=== PATIENT | female | born 1965 | race Caucasian/White ===

== ENCOUNTER 2023-06-29 10:12 | Outpatient (AMB) | payer OTHER, SELFPAY ==
--- NOTE | 2023-06-29 10:34 | AM.OFFWIN_ITS ---
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 PFSH Social History Patient Tobacco Use Status: Never used Tobacco Review of Systems ENT Details: Ear blockage Physical Exam Vital Signs: Last Vital Signs Temp 97.9 F 06/29/23 10:35 Pulse 59 06/29/23 10:35 BP 96/60 06/29/23 10:35 Pulse Ox 99 06/29/23 10:35 Oxygen Delivery Method Room Air 06/29/23 10:35 BMI result Body Mass Index 20.1 Const General: cooperative, healthy appearing, no acute distress and alert Orientation/consciousness: patient oriented x3 Limitations: no limitations HEENT Other: Cerumen impacted the ears bilaterally. Head: Yes normal to inspection Ears: hearing grossly normal bilaterally General nose exam: Normal external nose present Resp Effort & Inspection: normal respiratory effort and able to speak in complete sentences Cardio Rate: regular rate Skin General skin exam: no rashes or lesions noted Neuro General: patient oriented x3 Extrem General: Yes normal to inspection Assessment & Plan Assessment & Plan (1) Cerumen impaction: Code(s): H61.20 - Impacted cerumen, unspecified ear Qualifiers: Laterality: bilateral Qualified Code(s): H61.23 - Impacted cerumen, bilateral Plan: Cerumen impaction bilaterally unable to visualize TMs. Ears were flushed bilaterally re-evaluation still shows significant wax large mild removed from the left ear. Mom TMs intact minor bleeding in the canal. 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 Coding Level of Care Code New Pt Level 3 (50730) Diagnoses Bilateral impacted cerumen H61.23 Laterality: bilateral
[2023-06-29 10:35] VITALS: BP 96/60; PULSE 59; TEMP 36.6; O2SAT 99; BMI 20.1
== END 2023-06-29 11:22 | disposition home or self-care (01) ==
PROVIDERS: Visit Provider Physician Assistant
DX: H61.23 Impacted cerumen, bilateral (principal)
CPT/HCPCS: 99051; 99203

== ENCOUNTER 2023-10-29 16:50 | Emergency (ER) | payer OTHER, SELFPAY ==
--- NOTE | ~2023-10-29 | CT_ITS ---
EXAMINATION: CT KNEE WITHOUT CONTRAST, LEFT CLINICAL INFORMATION: Tibial plateau fracture. Patellar fracture. COMPARISON: Plain film exam of left knee today. TECHNIQUE: Axial images obtained through the left knee. Coronal and sagittal reformatted images are performed at CT scanner This CT examination was performed using dose optimization techniques as appropriate, variously including the following: *Automated exposure control *Adjustment of mA and/or kV according to patient size (this includes techniques or standardized protocols for targeted exams where dose is matched to indication/reason for exam; i.e. extremities or head) *Use of iterative reconstruction technique DLP: 273 mGy-cm FINDINGS: There is a minimally displaced small fracture through the tip of the distal pole of the patella. The patellar tendon remains intact. There is edema around the fracture extending into the prepatellar soft tissues. There is a minimally displaced intra-articular fracture of the proximal tibia. Fracture extends through the medial tibial spine into the metadiaphysis of the proximal tibia. Fracture primarily extends into the anterior, medial and posterior cortex of the tibia. No significant depression of the articular surface of the tibia. No fracture of the femur or proximal fibula. No dislocation. Lipohemarthrosis present. CT/CT knee LT wo IV con IMPRESSION: 1. Minimally displaced fracture of the distal pole of the patella. 2. Minimally displaced intra-articular fracture of the proximal tibia. 3. Lipohemarthrosis.
--- NOTE | ~2023-10-29 | XR_ITS ---
EXAMINATION: XR KNEE, LEFT XR TIBIA/FIBULA, LEFT CLINICAL INFORMATION: Fall. Left knee and marshall pain. COMPARISON: None available. TECHNIQUE: AP and lateral views of the left knee and left tibia/fibula. FINDINGS: Left Knee/Tibia and Fibula: Linear lucency within the medial tibial spine contacting the articular surface with more faint linear lucency through the medial aspect of the tibial plateau which contacts the medial cortical surface. Findings likely represent a nondisplaced tibial plateau fracture. This is better visualized than the anterior view of the tibia and fibula. No distal tibial or fibular fracture. Nondisplaced fracture through the inferior pole of the patella with a fracture gap measuring up to 0.1 cm. Normal patellofemoral alignment. No concerning lytic or blastic osseous lesion. No joint space or marginal osteophytes. No osseous erosion. No abnormal soft tissue calcification. XR/XR knee LT 2V IMPRESSION: 1. Nondisplaced fracture through the inferior pole of the patella. 2. Nondisplaced medial tibial plateau fracture with extension to the articular surface of the medial tibial spine as well as extension to the medial tibial cortex.
--- NOTE | ~2023-10-29 | XR_ITS ---
EXAMINATION: XR KNEE, LEFT XR TIBIA/FIBULA, LEFT CLINICAL INFORMATION: Fall. Left knee and marshall pain. COMPARISON: None available. TECHNIQUE: AP and lateral views of the left knee and left tibia/fibula. FINDINGS: Left Knee/Tibia and Fibula: Linear lucency within the medial tibial spine contacting the articular surface with more faint linear lucency through the medial aspect of the tibial plateau which contacts the medial cortical surface. Findings likely represent a nondisplaced tibial plateau fracture. This is better visualized than the anterior view of the tibia and fibula. No distal tibial or fibular fracture. Nondisplaced fracture through the inferior pole of the patella with a fracture gap measuring up to 0.1 cm. Normal patellofemoral alignment. No concerning lytic or blastic osseous lesion. No joint space or marginal osteophytes. No osseous erosion. No abnormal soft tissue calcification. XR/XR tibia fibula LT 2V IMPRESSION: 1. Nondisplaced fracture through the inferior pole of the patella. 2. Nondisplaced medial tibial plateau fracture with extension to the articular surface of the medial tibial spine as well as extension to the medial tibial cortex.
[2023-10-29 17:35] VITALS: BP 121/58; PULSE 74; RESP 16; TEMP 36.8; O2SAT 99; BMI 18.7
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
[2023-10-29 20:12] VITALS: BP 120/62; PULSE 82; O2SAT 99
[2023-10-29] MEDS: Ibuprofen 600 MG TABLET PO (22:39)
[2023-10-29 23:09] VITALS: BP 128/69; PULSE 82; O2SAT 99
[2023-10-30 00:48] VITALS: BP 128/69; PULSE 82; RESP 18; TEMP -17.7; TEMP 0; O2SAT 99
== END 2023-10-30 00:35 | disposition home or self-care (01) ==
PROVIDERS: Emergency Provider Emergency Medicine; PCP General Practice
DX: S82.142A Displaced bicondylar fracture of left tibia, initial encounter for closed fracture (principal); S82.002A Unspecified fracture of left patella, initial encounter for closed fracture; V18.0XXA Pedal cycle driver injured in noncollision transport accident in nontraffic accident, initial encounter; Y93.9 Activity, unspecified; Y92.9 Unspecified place or not applicable; Y99.9 Unspecified external cause status; M25.562 Pain in left knee
CPT/HCPCS: 29505; 73560; 73590; 73700; 99283; 99284

== ENCOUNTER 2023-10-31 14:55 | Outpatient (AMB) | payer OTHER, SELFPAY ==
[2023-10-31 15:10] VITALS: BMI 18.7
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
== END 2023-10-31 16:14 | disposition home or self-care (01) ==
PROVIDERS: PCP General Practice; Visit Provider Physician Assistant
DX: S82.142A Displaced bicondylar fracture of left tibia, initial encounter for closed fracture (principal); S82.002A Unspecified fracture of left patella, initial encounter for closed fracture
CPT/HCPCS: 99203

== ENCOUNTER → 2023-10-31 14:55 | Outpatient (BNVA) | payer OTHER, SELFPAY | PROVIDERS: PCP General Practice; Visit Provider Physician Assistant | DX: S82.142A Displaced bicondylar fracture of left tibia, initial encounter for closed fracture (principal); S82.002A Unspecified fracture of left patella, initial encounter for closed fracture | CPT/HCPCS: 99202 ==

== ENCOUNTER 2023-11-28 10:33 | Outpatient (REF) | payer OTHER, SELFPAY ==
--- NOTE | ~2023-11-28 | XR_ITS ---
EXAMINATION: XR KNEE, LEFT CLINICAL INFORMATION: Pain unspecified knee. COMPARISON: CT knee and x-ray knee, left knee of October 29, 2023. TECHNIQUE: AP standing view of bilateral knees. Lateral and sunrise views of the left knee. FINDINGS: LEFT KNEE: Redemonstration of a minimally displaced fracture through the inferior/distal pole of the patella. The previously identified minimally displaced intra-articular fracture of the proximal tibia extending to the medial spine into the metadiaphysis of the proximal tibia as well as into the anterior, medial posterior cortex of the tibia, was better characterized on prior CT scan and appears less conspicuous, suggesting some interval bridging callus formation. Moderate suprapatellar effusion. RIGHT KNEE: AP standing view of the right knee demonstrates [id number] narrowing of the lateral compartment and mild narrowing of the medial compartment. XR/XR knee LT 3V IMPRESSION: 1. Redemonstration of a minimally displaced fracture through the inferior/distal pole of the patella. 2. The previously identified minimally displaced intra-articular fracture of the proximal tibia extending to the medial spine into the metadiaphysis of the proximal tibia as well as into the anterior, medial posterior cortex of the tibia, was better characterized on prior CT scan and appears less conspicuous, suggesting some interval bridging callus formation. 3. Moderate suprapatellar effusion.
== END 2023-11-28 10:34 | disposition home or self-care (01) ==
LOC: HO.HOSX 10:33
PROVIDERS: Visit Provider Physician Assistant
DX: S82.142D Displaced bicondylar fracture of left tibia, subsequent encounter for closed fracture with routine healing (principal); S82.002D Unspecified fracture of left patella, subsequent encounter for closed fracture with routine healing
CPT/HCPCS: 73562; 99212

== ENCOUNTER 2023-11-28 10:52 | Outpatient (AMB) | payer OTHER, SELFPAY ==
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
[2023-11-28 11:28] VITALS: BMI 18.7
== END 2023-11-28 12:32 | disposition home or self-care (01) ==
PROVIDERS: PCP General Practice; Visit Provider Physician Assistant
DX: S82.142A Displaced bicondylar fracture of left tibia, initial encounter for closed fracture (principal); S82.002A Unspecified fracture of left patella, initial encounter for closed fracture
CPT/HCPCS: 99213

== ENCOUNTER 2023-12-25 08:00 | Outpatient (RCR) | payer OTHER, SELFPAY ==
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
--- NOTE | 2024-01-28 15:24 | MHC.PT.DC ---
[facility] [place] Office [place] Office [place] Office [address] [place] Ayon [address] [phone] F: [phone] F: [phone] F: [phone] F: [phone] Physical Therapy Discharge Report Diagnosis: This is a 58 yo female presenting to skilled PT with a script for displaced bicondylar fx L tibia/patella. Date of Surgery: Date of Evaluation: 12/04/23 Date of Discharge: 01/28/24 Treatments to Date: 2 Cancellations to Date: 0 No Shows to Date: 0 Discharge Status: Achieved Goals Improved Function Independent with HEP Patient Elected to Stop Discharge Summary: Patient was last seen on 12/24: Patient comes in with much improved ROM, strength, gait and swelling. Very compliant with HEP. I updated her HEP, went over stairs with her and educated her on the PT POC moving forward. She will call me after she sees ortho again in a few weeks to make a PT POC. Patient saw ortho and was cleared to weight bear. She has a sufficient HEP to continue on her own due to high co-pay. DC at this time. Electronically signed by: Becky Torres, PT Please sign and return to therapist. Thank you for your referral.
== END 2024-01-28 15:24 | disposition home or self-care (01) ==
LOC: HO.PTCHIC 08:00
PROVIDERS: PCP General Practice; Visit Provider Physician Assistant
DX: S82.002D Unspecified fracture of left patella, subsequent encounter for closed fracture with routine healing (principal); S82.142D Displaced bicondylar fracture of left tibia, subsequent encounter for closed fracture with routine healing
CPT/HCPCS: 97110; 97140; 97162; 97530

== ENCOUNTER 2024-01-06 09:00 | Outpatient (REF) | payer OTHER, SELFPAY | END 2024-01-06 09:01 | disposition home or self-care (01) | LOC: HO.HOSX 09:00 | PROVIDERS: Visit Provider Physician Assistant | DX: Z13.89 Encounter for screening for other disorder (principal) ==

== ENCOUNTER 2024-01-10 07:18 | Outpatient (REF) | payer OTHER, SELFPAY ==
--- NOTE | ~2024-01-10 | XR_ITS ---
EXAMINATION: XR KNEE, LEFT CLINICAL INFORMATION: Pain. COMPARISON: November 28, 2023 and October 29, 2023 radiographs, October 29, 2023 CT scan. TECHNIQUE: Two views of the left knee. FINDINGS: Redemonstration of a minimally displaced fracture through the inferior/distal pole of the patella with stable alignment and some interval bridging callus formation. The previously identified minimally displaced intra-articular fracture of the proximal tibia extending to the medial spine into the metadiaphysis of the proximal tibia as well as into the anterior, medial posterior cortex of the tibia, appears less conspicuous with evidence of bridging callus formation. Small suprapatellar effusion. XR/XR knee LT 2V IMPRESSION: Healing fractures of the patella and proximal tibia.
== END 2024-01-10 07:19 | disposition home or self-care (01) ==
LOC: HO.HOSX 07:18
PROVIDERS: Visit Provider Physician Assistant
DX: M25.562 Pain in left knee (principal); S82.142D Displaced bicondylar fracture of left tibia, subsequent encounter for closed fracture with routine healing; X58.XXXD Exposure to other specified factors, subsequent encounter
CPT/HCPCS: 73560; 99212

== ENCOUNTER 2024-01-10 09:43 | Outpatient (AMB) | payer OTHER, SELFPAY ==
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
[2024-01-10 09:51] VITALS: BMI 18.7
== END 2024-01-10 10:08 | disposition home or self-care (01) ==
PROVIDERS: PCP General Practice; Visit Provider Physician Assistant
DX: S82.142A Displaced bicondylar fracture of left tibia, initial encounter for closed fracture (principal); S82.002A Unspecified fracture of left patella, initial encounter for closed fracture
CPT/HCPCS: 99213

== ENCOUNTER 2025-01-06 08:03 | Outpatient (REF) | payer OTHER, SELFPAY ==
--- NOTE | ~2025-01-06 | MM_ITS ---
EXAMINATION: MM SCREENING DIGITAL BREAST TOMOSYNTHESIS, BILATERAL CLINICAL INFORMATION: Screening. Asymptomatic. COMPARISON: Mammography: Baseline. TECHNIQUE: Digital breast mammography with tomosynthesis is performed in both the craniocaudal and mediolateral oblique views along with computer-aided detection (CAD). FINDINGS: The breasts are heterogeneously dense, which may obscure small masses (ACR BI-RADS breast composition Category c). Left: Left marker clip. Asymmetry medial breast far posterior depth on CC view. No suspicious calcifications or other abnormal findings. Right: Asymmetry lateral breast posterior depth on CC view. No suspicious calcifications or other abnormal findings. MM/MM tomosynthesis screening BI IMPRESSION: Additional imaging is recommended ASSESSMENT: BI-RADS BI-RADS 0 - Incomplete: Needs additional Imaging. RECOMMENDATION: 1. Additional views of the bilateral breasts. 2. Targeted ultrasound if warranted after review of the additional views. 3. Radiology department staff will contact the patient for additional imaging. Additional Imaging required This examination should not preclude the clinical evaluation of a suspicious palpable abnormality. This patient's information was entered into a reminder system with a target due date for their next mammogram. Electronically signed by: Shyanne Hanna DO 01/11/2025 12:23 PM EDT
--- OUTSIDE RECORDS SUMMARY | 2025-01-06 08:15 | XMS_ITS | Clinical Summary ---
Author Organization [employer] Address [address] [facility] 7[address] [place] [address] Care Team Providers Care Oncology Rn Name Role Phone Susana Jay MD Primary Care Provider [phone] Allergies Active Allergy Reactions Criticality Noted Date Comments Sulfa Antibiotics Hives 09/26/2009 Medications azithromycin (Zithromax Z-Mychal) 250 MG tablet Take 2 tablets once on day 1, then 1 tablet 1x/day for 4 days. 6 tablet 12/23/2024 Active Active Problems Problem Noted Date Diagnosed Date Encounter for screening mamm ogram for malignant neoplasm of breast 10/01/2024 Lump of breast, right 11/08/2016 Overview (09/29/2024): 09/2016 Evaluated at [facility] by Dr Lo. Likely fibroadenoma. Pt declining bx due to cost. F/u breast mammo and us in [address] Lo. Raynaud disease 10/07/2013 Rosacea 10/07/2013 Deviated nasal septum 10/08/2012 Overview (09/29/2024): Deviated nasal septum Obstructive sleep apnea syndrome 10/08/2012 Overview (09/29/2024): KELLIE - Obstructive sleep apnea Breast calcification seen on mammogram 0 Overview (09/29/2024): Needs repeat mammo with mag views in 6 months( 09/2010) Last mammo 04/12/2010 at [facility] Foot cramps 10/20/2009 Encounters Date Type Department Care Team Description 12/23/2024 9:40 AM EDT [facility] [address] [address] Man Sarabia MD Acute cough (Primary Dx); Viral URI 12/23/2024 Travel from Last 3 Months Immunizations Immunization Administration Dates Next Due Tdap 09/24/2012 Social History Tobacco Use Types Packs/Day Years Used Date Smoking Tobacco: Never Smokeless Tobacco: Never Tobacco Cessation:Counseling Given: Not Answered Alcohol Use Standard Drinks/Week Comments Never 0 (1 standard drink = 0.6 oz pur e alcohol) Alcohol Answer Date Recorded How often do you have a drink containing alcohol ? 2 10/01/2024 How many drinks containing a lcohol do you have on a typical day when you are drinking? 0 10/01/2024 How often do you have six or more drinks on one occasion? 0 10/01/2024 Depression Answer Date Recorded Patient Health Questionnaire-9 Score 0 09/29/2024 Patient Health Questionnaire-9 Score 0 09/29/2024 Last PHQ-9: Questionnaire Data Not on file 0 09/29/2024 Housing Stability Answer Date Recorded What is your housing situation today? I have [place] 09/22/[address] you li ve. Do you have problems with any of the following? None of the above 09/22/2024 Food Insecurity Answer Date Recorded Within the past 12 months, y ou worried that your food would run out before you got money to buy more: Never True 09/22/2024 Within the past 12 months,th e food you bought just didn't last and you didn't have enough money to get more: Never True 10/2024 Transportation Answer Date Recorded In the past 12 months, has l ack of transportation kept you from medical appts, meetings, work or from getting things needed for daily living? No 09/22/2024 Intimate Partner Violence Answer Date R ecorded Within the last year, have y ou been afraid of your partner or ex-partner? 2 10/01/2024 Within the last year, have y ou been humiliated or emotionally abused in other ways by your partner or ex-partner? 2 Within the last year, have y ou been kicked, hit, slapped, or otherwise physically hurt by your partner or ex-partner? 2 10/01/2024 Within the last year, have y ou been raped or forced to have any kind of sexual activity by your partner or ex-partner? 2 10/01/2024 Utilities Answer Date Recorded In the past 12 months, has t he electric, gas, oil or water company threatened to shut off services in your home? No 09/22/2024 Depression Answer Date Recorded Patient Health Questionnaire-2 Score 0 09/29/2024 Internet Access Answer Date Recorded Internet Access Q1 Yes 09/22/2024 Internet Access Q2 Not on file 09/22/2024 Comments No Sex and Gender Information Value Date Recorded Sex Assigned at Female 03/16/2024 10:55 AM EDT Legal Sex Female 10:54 AM EDT Gender Identity Female 09/29/2024 10:27 AM EDT Sexual Orientation Straight 03/16/2024 10 :55 AM EDT Travel History Travel Start Travel End [place] 12/19/2024 12/22/2024 Last Filed Vital Signs Vital Sign Reading Time Taken Comments Blood Pressure 132/81 12/23/2024 9:49 AM EDT Pulse 70 12/23/2024 9:49 AM EDT Temperature 37.3 C (99.1 F) 12/23/2024 9:49 AM EDT Respiratory Rate 17 12/23/2024 9:49 AM EDT Oxygen Saturation 98% 12/23/2024 9:49 AM EDT Inhaled Oxygen Concentration - - Weight 61 kg (134 lb 6.4 oz) 12/23/2024 9:49 AM EDT Height 177.8 cm (5' 10 ) 09/29/2024 9:41 AM EDT Body Mass Index 19.28 09/29/2024 9:41 AM EDT Plan of Treatment Health Maintenance Due Date Last Done Comments CT Colonography 1967 Colonoscopy 1967 Colorectal Cancer Screening 1967 FIT DNA/Cologuard 1967 FIT 1967 FOBT 1967 HIV Screening 1967 Sigmoidoscopy 1967 Disability Screening 1967 Hepatitis C Screening 1985 Hepatitis B Vaccines (1 of 3 - 19+ 3-dose series) 1986 Pap Smear 1988 Cervical Cancer Screening 1997 HPV/Cotest 1997 Pneumococcal Vaccine: 50+ Years (1 of 1 - PCV) 2017 Zoster Vaccines (1 of 2) 2017 Mammogram 09/27/2018 09/27/2016, 03/03/2017, 12/02/2013, Additional history exists DTaP/Tdap/Td Vaccines (2 - Td or Tdap) 09/24/2022 09/24/2012 COVID-19 Vaccine (1 - 2023- season) 2024 Influenza Vaccine (Season Ended) 2025 SDOH Screening 09/22/2025 09/22/2024 Alcohol/Substance Use Screening 09/29/2025 09/29/2024 Depression Screening 09/29/2025 09/29/2024, 09/30/19 Tobacco Screening 12/23/2025 12/23/2024 RSV Patients and Patients Aged 60 years or older (1 - 1-dose 75+ series) 2042 HIB Vaccines Aged Out No longer eligi ble based on patient's age to complete this topic HPV Vaccines Aged Out No longer eligi ble based on patient's age to complete this topic Hepatitis A Vaccines Aged Out No long er eligible based on patient's age to complete this topic IPV Vaccines Aged Out No longer eligi ble based on patient's age to complete this topic Meningococcal B Vaccine Aged Out No l onger eligible based on patient's age to complete this topic Meningococcal Vaccine Aged Out No angel naomi eligible based on patient's age to complete this topic RSV under 20 months Aged Out No longe r eligible based on patient's age to complete this topic Rotavirus Vaccines Aged Out No longer eligible based on patient's age to complete this topic Procedures Procedure Name Priority Date/Time Associated Diagnosis Comments POCT RAPID STREP A Routine 12/23/2024 10 :43 AM EDT Viral URI POCT INFLUENZA B (ID NOW RAPID MOLECULAR) Routine 12/23/2024 10:02 AM EDT Viral URI POCT INFLUENZA A (ID NOW RAPID MOLECULAR) Routine 12/23/2024 10:02 AM EDT Viral URI POCT RAPID COVID ANTIGEN Routine 12/23/2024 10:02 AM EDT Viral URI from Last 3 Months Results * POCT rapid strep A manually resulted (12/23/2024 10:43 AM EDT) [facility] Rapid Strep A Screen Negative Negative, None Detected Swab 12/23/2024 10:4 3 AM EDT us Man Sarabia MD POINT OF CARE TEST ENTER/EDIT OR DERABLES Final Result * Influenza B (ID NOW Rapid Molecular) (12/23/2024 10:02 AM EDT) [facility] Influenza B Negative Negative, Indeterminate [facility] Swab 12/23/2024 10:0 2 AM EDT us Man Sarabia MD POINT OF CARE TEST ENTER/EDIT OR DERABLES Final Result Performing Organization Address [facility] Co de Phone Number [facility] [address] [place] [phone] * Influenza A (ID NOW Rapid Molecular) (12/23/2024 10:02 AM EDT) [facility] Influenza A Negative Negative, Indeterminate [facility] Swab 12/23/2024 10:0 2 AM EDT us Man Sarabia MD POINT OF CARE TEST ENTER/EDIT OR DERABLES Final Result Performing Organization Address [facility] Co de Phone Number [facility] [address] [place] [phone] * POCT Rapid COVID Ag (12/23/2024 10:02 AM EDT) [facility] Rapid COVID Ag Negative [facility] Swab 12/23/2024 10:0 2 AM EDT us Man Sarabia MD POINT OF CARE TEST ENTER/EDIT OR DERABLES Final Result [facility] [address] [place] [address] [phone] from Last 3 Months Insurance [facility] Care Teams Oncology Rn Relationship Specialty Start Date End Date Susana Jay MD [address] [place] [address] PCP - General Family Medicine 09/29/24
== END 2025-01-06 08:04 | disposition home or self-care (01) ==
LOC: HO.MAMMO 08:03
PROVIDERS: PCP General Practice; Visit Provider General Practice
DX: Z12.31 Encounter for screening mammogram for malignant neoplasm of breast (principal)
CPT/HCPCS: 77063; 77067

== ENCOUNTER → 2025-01-06 08:15 | Outpatient (BNV) | payer OTHER, SELFPAY | PROVIDERS: PCP General Practice; Visit Provider Internal Medicine | DX: Z12.31 Encounter for screening mammogram for malignant neoplasm of breast (principal) | CPT/HCPCS: 77063; 77067 ==

== ENCOUNTER 2025-02-15 13:43 | Outpatient (REF) | payer OTHER, SELFPAY ==
--- NOTE | ~2025-02-15 | US_ITS ---
EXAMINATIONS: 1. MM DIAGNOSTIC DIGITAL BREAST TOMOSYNTHESIS, BILATERAL 2. Targeted ultrasound of the right breast 3. Targeted ultrasound of the left breast CLINICAL INFORMATION: Callback from screening for bilateral findings as follows: Right: Asymmetry in the lateral breast posterior depth on the CC view. Left: Asymmetry in the medial breast posterior depth on the CC view. Note that according to the patient, prior mammogram study obtained in [facility], cannot be retrieved as the hospital does not longer exist. COMPARISON: Screening mammogram on January 06, 2025 TECHNIQUE: Digital breast tomosynthesis is performed in craniocaudal, XCCL, ML 90 degrees views along with computer-aided detection (CAD). Synthesized 2D images are generated from the tomosynthesis. Spot compression tomosynthesis images were also obtained. FINDINGS: BREAST COMPOSITION: The breasts are heterogeneously dense, which may obscure small masses (ACR BI-RADS breast composition Category c). RIGHT BREAST: Skin marker is placed at the location of the surgical scar over a previous cyst removal. Previously described asymmetry is tentatively identified measuring about 1.0 cm in the lateral breast at 4 cm from the nipple on the CC view (CC 17/38) and in the upper breast at 6 cm from the nipple on the spot MLO (spot MLO 12/34). Targeted ultrasound of the right breast was performed at the location of the mammographic finding. The survey shows a 0.9 x 0.5 x 0.7 cm hypoechoic oval complicated cyst or solid mass at 10 o'clock position 6 cm from the nipple. No internal vascularity demonstrated with color Doppler evaluation. This likely correlates with the mammographic finding. LEFT BREAST: Previously seen asymmetry in the medial breast posterior depth on the CC view is less conspicuous on today's images, and likely represented overlapping fibroglandular breast tissue. Targeted ultrasound of the left breast was performed at the location of the mammographic finding. Survey was performed at 7:00-10:00 positions. No suspicious sonographic findings seen. Incidental note is made of a 0.4 x 0.2 x 0.3 cm cyst at 7 o'clock position 3 cm from the nipple; no dedicated imaging follow-up needed. US/US breast BI limited mamm only IMPRESSION: RIGHT BREAST: 0.9 cm complicated cyst or solid mass at 10 o'clock position 6 cm from the nipple, likely correlating with the mammographic finding in the upper outer quadrant. Probably benign. A 6-month follow-up ultrasound is recommended. LEFT BREAST: Benign, no evidence of malignancy. Normal interval follow-up is recommended in 12 months. ASSESSMENT: BI-RADS 3 - Probably benign finding(s) - 6 month follow-up suggested RECOMMENDATION: 6 Month F/U Results were provided to the patient at time of visit by the technologist. This patient's information was entered into a reminder system with a target due date for their next mammogram. Electronically signed by: Nabila Marquez MD 02/15/2025 03:40 PM EDT
--- OUTSIDE RECORDS SUMMARY | 2025-02-15 14:24 | XMS_ITS | Clinical Summary ---
Author Organization [employer] Address [address] [facility] 7[address] [place] [address] Care Team Providers Care Manager Home Improvement Name Role Phone Susana Jay MD Primary Care Provider [phone] Allergies Active Allergy Reactions Criticality Noted Date [...] right 11/08/2016 Overview (09/29/2024): 09/2016 Evaluated at [facility] by Dr Lo. Likely fibroadenoma. Pt [...] 6 months( 09/2010) Last mammo 04/12/2010 at [facility] Foot cramps 10/20/2009 Encounters Date Type Department Care Team Description 12/23/2024 9:40 AM EDT [facility] [address] [address] Man Sarabia MD Acute cough (Primary Dx); [...] Orientation Straight 03/16/2024 10 :55 AM EDT Last Filed Vital Signs Vital Sign Reading [...] 09/29/2024 9:41 AM EDT Plan of Treatment Upcoming Encounters Date Type Department Care Team (Late st Contact Info) Description 04/16/2025 1:30 PM EDT Office Visit [facility] [address] [place] [address] Susana Jay MD [address] [place] [address] Health Maintenance Due Date Last Done Comments [...] 2017 Zoster Vaccines (1 of 2) 2017 DTaP/Tdap/Td Vaccines (2 - T d or Tdap) 09/24/2022 09/24/2012 COVID-19 Vaccine (1 - 2023-2 5 season) 2024 Diagnostic Breast Imaging 01/11/2025 09/27/2016 Influenza Vaccine (#1) 2025 SDOH Screening 09/22/2025 09/22/2024 Alcohol/Substance Use Screening 09/29/2025 09/29/2024 Depression Screening 09/29/2025 09/29/2024, 09/29/2024 Tobacco Screening 12/23/2025 12/23/2024 RSV Patients and [...] Procedure Name Priority Date/Time Associated Diagnosis Comments BI MAMMOGRAM SCREENING TOMOSYNTHESIS BILATERAL Routine 01/06/2025 8:30 AM EDT Encounter for screening mammogram for malignant neoplasm of breast POCT RAPID STREP A Routine 12/23/2024 10 :43 AM EDT Viral URI POCT INFLUENZA B (ID NOW RAPID MOLECULAR) Routine 12/23/2024 10:02 AM EDT Viral URI POCT INFLUENZA A (ID NOW RAPID MOLECULAR) Routine 12/23/2024 10:02 AM EDT Viral URI POCT RAPID COVID ANTIGEN Routine 12/23/2024 10:02 AM EDT Viral URI from Last 3 Months Results * BI Mammogram Screening Tomosynthesis Bilateral (01/06/2025 8:30 AM EDT) Anatomical Region Laterality Modality Breast Bilateral Mammography 01/06/2025 8:30 AM EDT Narrative 01/11/2025 12:25 PM EDT [address] [place] [address] Mammography Report Signed Patient: Tiki Mccarthy MR#: [id number] : 1965 Acct:[id number] Age/Sex: 59 / F ADM Date: 01/06/25 Loc: HO.MAMMO Attending Dr: Susana Jay MD Ordering Physician: Susana Jay Results: 0Incomple te: Needs Additional Imaging Evaluation Date of Service: 01/06/25 Follow Up: Additional Imagi ng Procedure(s): MM tomosynthesis screening BI Accession Number(s): [id number] cc: Susana Jay EXAMINATION: MM SCREENING DIGITAL BREAST TOMOSYNTHESIS, BILATERAL CLINICAL INFORMATION: Screening. Asymptomatic. COMPARISON: Mammography: Baseline. TECHNIQUE: Digital breast mammography with tomosynthesis is performed in both the craniocaudal and mediolateral oblique views along with computer-aided detection (CAD). FINDINGS: The breasts are heterogeneously dense, which may obscure small masses (ACR BI-RADS breast composition Category c). Left: Left marker clip. Asymmetry medial breast far posterior depth on CC view. No suspicious calcifications or other abnormal findings. Right: Asymmetry lateral breast posterior depth on CC view. No suspicious calcifications or other abnormal findings. MM/MM tomosynthesis screening BI IMPRESSION: Additional imaging is recommended ASSESSMENT: BI-RADS BI-RADS 0 - Incomplete: Needs additional Imaging. RECOMMENDATION: 1. Additional views of the bilateral breasts. 2. Targeted ultrasound if warranted after review of the additional views. 3. Radiology department staff will contact the patient for additional imaging. Additional Imaging required This examination should not preclude the clinical evaluation of a suspicious palpable abnormality. This patient's information was entered into a reminder system with a target due date for their next mammogram. Electronically signed by: Shyanne Hanna DO 01/11/2025 12:23 PM EDT RP Dictated By: Shyanne Hanna DO Signed By: <Electronically signed by Shyanne Hanna DO in OV> 01/11/25 1223 DD/ 0830 TD/TT: 01/06/25 0850 Sleep Manager: Procedure Note Donotuseinterpreter, Image - [facility] [address] [place] [address] Mammography Report Signed Patient: Matthieu Mccarthy#: [id number] : 1965Acct:[id number] Age/Sex: 59 / FADM Date: 01/06/25 Loc: HO.MAMMO Attending Dr: Susana Jay MD Ordering Physician: Darrick Jayults: 0Incomple te: Needs Additional Imaging Evaluation Date of Service: 01/06/25Follow Up: Additional Imagi ng Procedure(s): MM tomosynthesis screening BI Accession Number(s): [id number] cc: Susana Jay EXAMINATION: MM SCREENING DIGITAL BREAST TOMOSYNTHESIS, BILATERAL CLINICAL INFORMATION: Screening. Asymptomatic. COMPARISON: Mammography: Baseline. TECHNIQUE: Digital breast mammography with tomosynthesis is performed in both the craniocaudal and mediolateral oblique views along with computer-aided detection (CAD). FINDINGS: The breasts are heterogeneously dense, which may obscure small masses (ACR BI-RADS breast composition Category c). Left: Left marker clip. Asymmetry medial breast far posterior depth on CC view. No suspicious calcifications or other abnormal findings. Right: Asymmetry lateral breast posterior depth on CC view. No suspicious calcifications or other abnormal findings. MM/MM tomosynthesis screening BI IMPRESSION: Additional imaging is recommended ASSESSMENT: BI-RADS BI-RADS 0 - Incomplete: Needs additional Imaging. RECOMMENDATION: 1. Additional views of the bilateral breasts. 2. Targeted ultrasound if warranted after review of the additional views. 3. Radiology department staff will contact the patient for additional imaging. Additional Imaging required This examination should not preclude the clinical evaluation of a suspicious palpable abnormality. This patient's information was entered into a reminder system with a target due date for their next mammogram. Electronically signed by: Shyanne Hanna DO 01/11/2025 12:23 PM EDT Dictated By: Shyanne Hanna DO Signed By: <Electronically signed by Shyanne Hanna DO in OV> 01/11/25 1223 DD/ 0830 TD/TT: 01/06/25 0850 Sleep Manager: Susana Jay MD IMG BI PROCEDURES Final Result * POCT rapid strep A manually resulted (12/23/2024 10:43 AM EDT) Pathologist [facility] Rapid Strep A Screen Negative Negative, None Detected Swab 12/23/2024 10:4 3 AM EDT Man Sarabia MD POINT OF CARE TEST ENTER/EDIT OR DERABLES Final Result * Influenza B (ID NOW Rapid Molecular) (12/23/2024 10:02 AM EDT) Influenza B Negative Negative, Indeterminate [facility] Swab 12/23/2024 10:0 2 AM EDT Man Sarabia MD POINT OF CARE TEST ENTER/EDIT OR DERABLES Final Result [facility] [address] [place] [phone] * Influenza A (ID NOW Rapid Molecular) (12/23/2024 10:02 AM EDT) Influenza A Negative Negative, Indeterminate [facility] Swab 12/23/2024 10:0 2 AM EDT us Man Sarabia MD POINT OF CARE TEST ENTER/EDIT OR DERABLES Final Result Performing Organization Address [facility]/ZIP Co de Phone Number [facility] [address] [place] [address] [phone] * POCT Rapid COVID Ag (12/23/2024 10:02 AM EDT) Rapid COVID Ag Negative [facility] Swab 12/23/2024 10:0 2 AM EDT us Man Sarabia MD POINT OF CARE TEST ENTER/EDIT OR DERABLES Final Result Performing Organization Address [facility] Co de Phone Number [facility] [address] [place] [address] [phone] from Last 3 Months Insurance [facility] Care Teams Manager Home Improvement Relationship Specialty Start Date End Date Susana Jay MD [address] [place] [phone] PCP - General Family Medicine 09/29/24
--- OUTSIDE RECORDS SUMMARY | 2025-02-15 14:24 | XMS_ITS | Clinical Summary ---
Author Organization [facility] Address [address] [place] [phone] Phone Care Team Providers Care Assembler 1St Shift Name Role Phone Unknown, Unknown Primary Care Provider Unavai lable Allergies Active Allergy Reactions Criticality Noted Date Comments Sulfa (Sulfonamide Antibiotics) Hives 06/22 Medications No known medications Active Problems Problem Noted Date Diagnosed Date Obstructive sleep apnea syndrome 10/08/2012 Overview (09/11/2014): KELLIE - Obstructive sleep apnea Deviated nasal septum 10/08/2012 Overview (09/11/2014): Deviated nasal septum Family History Medical History Relation Comments Bleeding Disorder Neg Hx Social History Tobacco Use Types Packs/Day Years Used Date Smoking Tobacco: Never Smokeless Tobacco: Never Alcohol Use Standard Drinks/Week Comments Yes 0 (1 standard drink = 0.6 oz pur e alcohol) Education Answer Date Recorded Are you interested in more education? Not on jacob e 11/25/2022 Are you concerned about learning? Not on file 11/25/2022 No 11/25/2022 No 11/25/2022 Digital Access Answer Date Recorded No 12/16/2022 No 12/16/2022 No 12/16/2022 Reliable internet access at home? Not on file 12/16/2022 Device with a working camera? Not on file Comments Unknown Sex and Gender Information Value Date Recorded Sex Assigned at Not on file Legal Sex Female 6:26 PM EST Gender Identity Not on file Sexual Orientation Not on file Last Filed Vital Signs Vital Sign Reading Time Taken Comments Blood Pressure - - Pulse - - Temperature - - Respiratory Rate - - Oxygen Saturation - - Inhaled Oxygen Concentration - - Weight 60.3 kg (133 lb) 05/22/2018 3:56 PM EDT Height 177.8 cm (5' 10 ) 05/22/2018 3:56 PM EDT Body Mass Index 19.08 05/22/2018 3:56 PM EDT Plan of Treatment Health Maintenance Due Date Last Done Comments LIPID PANEL 1967 DEPRESSION SCREENING 1979 HEPATITIS C SCREENING 1985 HIV ONE-TIME SCREENING (18-6 5 YEARS) 1985 PAP SMEAR 1988 MAMMOGRAM 2007 COLOGUARD 2012 COLONOSCOPY 2012 COLORECTAL CANCER SCREENING 2012 FIT TEST 2012 FOBT 2012 SIGMOIDOSCOPY 2012 VIRTUAL COLONOSCOPY 2012 PNEUMOCOCCAL VACCINES (50+ years) (1 of 1 - PCV) 2017 ZOSTER VACCINES (1 of 2) 2017 COVID-19 VACCINE (3 - 2023-2 5 season) 2024 09/28/2020, 09/07/2020 Adult Td,Tdap Booster 05/01/2028 05/01/2018 , 09/24/2012 HEPATITIS A VACCINES Aged Out 05/01/2018 No long er eligible based on patient's age to complete this topic SMOKING STATUS SCREENING (On ce After 26 Yrs) Completed 05/22/2018 HIB VACCINES Aged Out No longer eligi ble based on patient's age to complete this topic MENINGOCOCCAL VACCINES (ACWY) Aged Out No longer eligible based on patient's age to complete this topic MENINGOCOCCAL VACCINES (B) Aged Out N o longer eligible based on patient's age to complete this topic Medical Devices Not on file Insurance EPO EPO [place] [address] [place] [address] [facility] [place] [address] [place] [address] [place] [place] [address] [employer] E[employer] Care Teams Assembler 1St Shift Relationship Specialty Start Date End Date Unknown, Unknown, PCP - General 01/03/23 Additional Source Comments The information contained in this document represents components of the legal health record. It is not the complete legal health record[facility]
== END 2025-02-15 13:44 | disposition home or self-care (01) ==
LOC: HO.MAMMO 13:43
PROVIDERS: PCP General Practice; Visit Provider General Practice
DX: N64.89 Other specified disorders of breast (principal)
CPT/HCPCS: 76642; 77062; 77066

== ENCOUNTER → 2025-02-15 14:00 | Outpatient (BNV) | payer OTHER, SELFPAY | PROVIDERS: PCP General Practice; Visit Provider Radiology Body Imaging | DX: N63.11 Unspecified lump in the right breast, upper outer quadrant (principal); N60.02 Solitary cyst of left breast | CPT/HCPCS: 76642; 77062; 77066 ==